=== PATIENT | female | born 2000 | race African-American/Black ===

== ENCOUNTER 2022-07-27 14:39 | Emergency (ER) | payer BC, OTHER, SELFPAY ==
[2022-07-27 14:56] VITALS: BP 138/80; PULSE 114; RESP 20; TEMP 36.6; O2SAT 98
[2022-07-27 15:44] LABS: Influenza A QL RT-PCR Negative (Negative); Influenza B QL RT-PCR Negative (Negative); SARS-CoV-2 RNA PCR Positive
[2022-07-27 16:54] LABS: Strep Group A RT-PCR Negative (Negative)
--- NOTE | 2022-07-27 16:55 | ED.URI ---
HPI - URI/Sore Throat General Chief Complaint: Upper Respiratory Infection Stated Complaint: sore throat Time Seen by Provider: 07/27/22 16:32 History of Present Illness HPI Narrative: Pt presents with runny nose, sore throat and body aches for a couple of days. Pt denies fever or vomiting or RIVAS. Pt has not had covid or flu vaccines. Related Data Allergies Allergy/AdvReac Type Severity Reaction Status Date / Time amoxicillin Allergy Severe Itching Verified 02/10/19 11:49 clavulanic acid Allergy Severe Itching Verified 02/10/19 11:49 Review of Systems Review of Systems: All systems reviewed & are unremarkable except as noted in HPI and below Exam Const: General: healthy appearing Nutritional Appearance: well nourished Orientation/consciousness: patient oriented x3 Limitations: no limitations HENMT: Mouth: Yes Normal oral and palatal mucosa present Throat: posterior oropharynx normal (mild erythema) Eyes: Conjunctivae: conjunctivae normal EOM: EOMs intact bilaterally Neck: Neck: normal visual inspection, no lymphadenopathy and no meningeal signs Resp: Effort & Inspection: normal respiratory effort Auscultation: clear to auscultation bilaterally Cardio: Rate: regular rate Rhythm: regular rhythm GI: GI Palp: Yes Soft to palpation Auscultation: normal bowel sounds Skin: General skin exam: normal color Rashes: no rashes Wounds: no wounds Neuro: General: patient oriented x3, moves all extremities, no meningeal signs, no focal motor deficits and CN's II-XI intact bilaterally Speech: normal speech Extrem: General: normal to inspection and no clubbing, cyanosis or edema Psych: Mental Status: mental status grossly normal Affect: normal affect Attitude: cooperative Course Vital Signs Vital signs: Vital Signs Temperature 97.8 F 07/27/22 14:56 Pulse Rate 114 H 07/27/22 14:56 Respiratory Rate 20 07/27/22 14:56 Blood Pressure 138/80 07/27/22 14:56 Pulse Oximetry 98 07/27/22 14:56 Oxygen Delivery Room Air 07/27/22 14:56 Temperature 97.8 F 07/27/22 14:56 Pulse Rate 114 H 07/27/22 14:56 Respiratory Rate 20 07/27/22 14:56 Blood Pressure 138/80 07/27/22 14:56 Pulse Oximetry 98 07/27/22 14:56 Oxygen Delivery Room Air 07/27/22 14:56 MDM - URI/Sore Throat Lab Data Labs: Lab Results 07/27/22 07/27/22 Range/Units 15:03 15:03 Influenza A (RT-PCR) Negative (Negative) Influenza B (RT-PCR) Negative (Negative) SARS-CoV-2 RNA (RT-PCR) Positive A Group A Strep (PCR) Negative (Negative) Discharge Plan Discharge Clinical Impression: COVID-19 Patient Disposition: Home, Self-Care Condition: Stable Instructions: Antibiotic Form, COVID-19 (Coronavirus Disease 2019) (ED) Follow-up/Referrals: UNKNOWN,DOCTOR [Non-Staff] - Stand Alone Forms: Work/School Release IP
== END 2022-07-27 17:17 | disposition home or self-care (01) ==
PROVIDERS: Emergency Provider Emergency Medicine; PCP Nurse Practitioner Family
DX: U07.1 COVID-19 (principal)
CPT/HCPCS: 87636; 87651; 99283

== ENCOUNTER 2022-08-06 01:57 | Emergency (ER) | payer BC, OTHER, SELFPAY ==
--- NOTE | ~2022-08-06 | XR_ITS ---
XR chest 1V portable DATE: 08/06/2022 04:25 INDICATION: Flu like symptoms for 10 days TECHNIQUE: Portable AP view on 08/06/2022 at 0420 hours COMPARISON: None FINDINGS: Normal heart size. No hilar or mediastinal enlargement. No pulmonary consolidation, pulmo nary vascular congestion or pleural effusion. No pneumothorax. IMPRESSION: No active disease Reviewed, dictated and finalized at location B. [employer] INSPECTOR IMPRESSION: No active disease
[2022-08-06 01:58] VITALS: BP 137/87; PULSE 87; RESP 28; TEMP 36.8; O2SAT 100
[2022-08-06] MEDS: ACETAMINOPHEN 500 MG TABLET 1000 MG PO (03:46)
--- NOTE | 2022-08-06 04:04 | ED.GENADULT ---
HPI - General Adult General Chief complaint: Upper Respiratory Infection Stated complaint: upper respiratory infection Time Seen by Provider: 08/06/22 03:35 History of Present Illness HPI narrative: This is a 22-year-old female presenting ED with URI symptoms. Patient was diagnosed with COVID on July 26. She felt like she was improving had a very good day and July 30. Then she became worse again on July 31 this had symptoms since then. Those symptoms include hoarse voice, body aches, difficulty breathing diarrhea. She denies chest pain, nausea vomiting or urinary symptoms. Related Data Allergies Allergy/AdvReac Type Severity Reaction Status Date / Time amoxicillin Allergy Severe Itching Verified 02/10/19 11:49 clavulanic acid Allergy Severe Itching Verified 02/10/19 11:49 Review of Systems Review of Systems: CONSTITUTIONAL: Denies night sweats. EYES: No eye pain ENT: Denies rhinorrhea CARDIOVASCULAR: Denies palpitations RESPIRATORY: Denies hemoptysis GASTROINTESTINAL: Denies hematemesis GENITOURINARY: Denies hematuria. SKIN: Denies rash MUSCULOSKELETAL: Denies myalgia. NEUROLOGIC: Denies weakness. PSYCHIATRIC: Denies delusions [facility] Past Medical History Medical History Asthma Obesity PCOS (polycystic ovarian syndrome) Social History Social History (Updated 08/06/22 @ 04:05 by Ramiro Maciel MD) Social History: Denies use of alcohol cigarettes or tobacco Exam Narrative: APPEARANCE: No apparent distress. patient is well-appearing. She is playing pleasant during the interview. Head: atraumatic. no erythema or exudates in the oropharynx EYES: EOMI, NOSE: Atraumatic NECK: Trachea midline RESPIRATORY: No increased rate of breathing , clear to auscultation bilaterally CARDIOVASCULAR: RRR, ABDOMINAL: Non-distended, no guarding or rebound MUSCULOSKELETAl: No obvious deformities NEURO: Alert. Moving 4/4 extremities SKIN:: Warm, dry. Normal color PSYCHIATRIC: Normal affect Course Vital Signs Vital signs: Vital Signs Temperature 98.2 F 08/06/22 01:58 Pulse Rate 87 08/06/22 01:58 Respiratory Rate 28 H 08/06/22 01:58 Blood Pressure 137/87 08/06/22 01:58 Pulse Oximetry 100 08/06/22 01:58 Oxygen Delivery Room Air 08/06/22 01:58 Temperature 98.2 F 08/06/22 01:58 Pulse Rate 87 08/06/22 01:58 Respiratory Rate 28 H 08/06/22 01:58 Blood Pressure 137/87 08/06/22 01:58 Pulse Oximetry 100 08/06/22 01:58 Oxygen Delivery Room Air 08/06/22 03:41 Medical Decision Making MDM Narrative Medical decision making narrative: this is a 22-year-old female presenting approximately 10 days after her COVID diagnosis. Differential includes a new viral syndrome, long COVID, secondary pneumonia. Viral swab has been obtained, chest x-ray will be ordered. Patient given Motrin Tylenol for symptoms. My interpretation of the chest x-ray did not reveal any acute cardiopulmonary process. Official read will be performed in the morning. Regardless the patient is not in respiratory distress or requiring supplemental oxygen Patient was positive for flu. She has had symptoms for at least 6 days. She is not a candidate for Tamiflu. She is well appearing with stable vital signs. Patient will be discharged with Motrin Tylenol and primary care follow-up. Vital Signs Vital Signs: Vital Signs Temperature 98.2 F 08/06/22 01:58 Pulse Rate 87 08/06/22 01:58 Respiratory Rate 28 H 08/06/22 01:58 Blood Pressure 137/87 08/06/22 01:58 Pulse Oximetry 100 08/06/22 01:58 Oxygen Delivery Room Air 08/06/22 01:58 Temperature 98.2 F 08/06/22 01:58 Pulse Rate 87 08/06/22 01:58 Respiratory Rate 28 H 08/06/22 01:58 Blood Pressure 137/87 08/06/22 01:58 Pulse Oximetry 100 08/06/22 01:58 Oxygen Delivery Room Air 08/06/22 03:41 Lab Data Labs: Lab Results 08/06/22 Range/Un
[2022-08-06 04:29] LABS: Influenza A QL RT-PCR Positive (Negative); Influenza B QL RT-PCR Negative (Negative); SARS-CoV-2 RNA PCR Negative
[2022-08-06] MEDS: IBUPROFEN 400 MG TABLET 800 MG PO (04:49)
--- NOTE | 2022-08-06 04:50 | PC.NURSE ---
Pt verbalized understanding of with ibuprofen and states that she is not and wants to continue with ibuprofen dose at this time.
[2022-08-06 04:52] VITALS: BP 139/87; PULSE 88; RESP 20; O2SAT 100
== END 2022-08-06 05:22 | disposition home or self-care (01) ==
PROVIDERS: Emergency Provider Emergency Medicine; PCP Nurse Practitioner Family
DX: J10.1 Influenza due to other identified influenza virus with other respiratory manifestations (principal); E28.2 Polycystic ovarian syndrome; E66.9 Obesity, unspecified; Z68.44 Body mass index [BMI] 60.0-69.9, adult; Z86.16 Personal history of COVID-19
CPT/HCPCS: 71045; 87636; 99283; A9270